=== PATIENT | male | born 1955 | race Two or more races ===

== ENCOUNTER 2016-08-21 21:03 | Emergency (ER) | payer OTHER ==
[~2016-08-21] VITALS: Ht 180.3 cm; Wt 63.5 kg
[2016-08-21 21:23] VITALS: BP 130/80
--- NOTE | 2016-08-21 21:36 | Emergency Room Report ---
History of Present Illness General Chief Complaint: Dyspnea/Respdistress Source: Patient Present Illness HPI This is a 60-year-old male with history of COPD. He still smokes. He is not oxygen dependent. He presents with chief complaint of shortness of breath. Worse with exertion. Has been ongoing issue. He has multiple admissions for the same. He was just at [facility] yesterday. Prescribe antibiotics and steroid including his inhaler. He said is not getting better. Denies any chest pain. No fever or chills. Cough is productive of whitish sputum. No edema. Allergies: Coded Allergies: No Known Allergies (Unverified , 07/10/16) Patient History Past Medical History: see triage record, old chart reviewed, COPD Past Surgical History: other Pertinent Family History: none Social History: Reports: smoking Immunizations: other Reviewed Nursing Documentation: PMH: Agreed, PSxH: Agreed Nursing Documentation-PMH Hx COPD: Yes Hx Gastrointestinal Problems: No - Left testicular, hernia. Review of Systems Eye: Denies: blurred vision, eye pain ENT: Denies: ear pain, nose congestion, throat swelling Respiratory: Reports: cough, shortness of breath Cardiovascular: Denies: chest pain, palpitations Gastrointestinal: Denies: abdominal pain, diarrhea, nausea, vomiting Musculoskeletal: Denies: back pain, joint pain Skin: Denies: rash Neurological: Denies: headache, numbness Endocrine: Denies: increased thirst, increased urine Hematologic/Lymphatic: Denies: easy bruising All Other Systems: negative except mentioned in HPI Physical Exam Vital Signs Date Time Temp Pulse Resp B/P Pulse Ox O2 Delivery O2 Flow Rate FiO2 08/21/16 21:10 98.1 78 20 130/80 100 Simple Mask 10.0 vitals unremarkable. Sp02 EP Interpretation: reviewed, normal General Appearance: well appearing, alert, mild distress Head: normocephalic, atraumatic Eyes: bilateral eye EOMI, bilateral eye PERRL ENT: hearing grossly normal, normal pharynx Neck: full range of motion, supple, no meningismus Respiratory: chest non-tender, decreased breath sounds, rhonchi Cardiovascular #1: regular rate, rhythm, no murmur Gastrointestinal: normal bowel sounds, non tender, no mass, no organomegaly, no bruit, non-distended Musculoskeletal: back normal, gait/station normal, normal range of motion Psychiatric: mood/affect normal Skin: warm/dry Medical Decision Making Diagnostic Impression: Primary Impression: COPD exacerbation Additional Impressions: Acute and chronic respiratory failure ([id number]) Qualified Codes: J96.21 - Acute and chronic respiratory failure with hypoxia Cocaine abuse ER Course Patient presents with COPD exacerbation. Has multiple admission in the past. I suspect that his cocaine use is causing his respiratory distress. His much better now. He is stable for transfer. No evidence of ACS, PE, pneumonia, dissection to name a few. Laboratory Tests Test 08/21/16 21:41 08/21/16 22:15 White Blood Count 11.2 K/UL (4.8-10.8) H Red Blood Count 4.88 M/UL (4.70-6.10) Hemoglobin 14.7 G/DL (14.2-18.0) Hematocrit 46.2 % (42.0-52.0) Mean Corpuscular Volume 95 FL (80-99) Mean Corpuscular Hemoglobin 30.2 PG (27.0-31.0) Mean Corpuscular Hemoglobin Concent 31.9 G/DL (32.0-36.0) L Red Cell Distribution Width 14.6 % (11.6-14.8) Platelet Count 332 K/UL (150-450) Mean Platelet Volume 6.8 FL (6.5-10.1) Neutrophils (%) (Auto) 65.5 % (45.0-75.0) Lymphocytes (%) (Auto) 26.2 % (20.0-45.0) Monocytes (%) (Auto) 5.5 % (1.0-10.0) Eosinophils (%) (Auto) 0.4 % (0.0-3.0) Basophils (%) (Auto) 2.3 % (0.0-2.0) H Sodium Level 140 mEQ/L (135-145) Potassium Level 4.2 mEQ/L (3.4-4.9) Chloride Level 94 mEQ/L (98-107) L Carbon Dioxide Level 35 mEQ/L (20-30) H Anion Gap 11 (5-15) Blood Urea Nitrogen 16 mg/dL (7-23) Creatinine 0.8 mg/dL (0.7-1.2) Estimat Glomerular Filtration Rate > 60 mL/min (>60) Glucose Level 172 mg/dL (74-106) H Calcium Level 8.5 mg/dL (8.6-10.2) L Total Bilirubin < 0.2 mg/dL (0.0-1.2) Aspartate Amino Transf (AST/SGOT) 15 U/L (5-40) Alanine Aminotransferase (ALT/SGPT) 17 U/L (3-41) Alkaline Phosphatase 72 U/L (40-129) Total Creatine Kinase 58 U/L (38-174) Creatine Kinase MB 1.9 ng/mL (< 6.7) Creatine Kinase MB Relative Index 3.2 Troponin I < 0.30 ng/mL (<=0.30) Total Protein 6.0 g/dL (6.6-8.7) L Albumin 3.3 g/dL (3.5-5.2) L Globulin 2.7 g/dL Albumin/Globulin Ratio 1.2 (1.0-2.7) Urine Color Pale yellow Urine Appearance Clear Urine pH 6.5 (4.5-8.0) Urine Specific [place] 1.015 (1.005-1.035) Urine Protein 1+ (NEGATIVE) H Urine Glucose (UA) Negative (NEGATIVE) Urine Ketones Negative (NEGATIVE) Urine Occult Blood 1+ (NEGATIVE) H Urine Nitrite Negative (NEGATIVE) Urine Bilirubin Negative (NEGATIVE) Urine Urobilinogen Normal MG/DL (0.0-1.0) Urine Leukocyte Esterase Negative (NEGATIVE) Urine RBC 0-2 /HPF (0 - 0) H Urine WBC 0-2 /HPF (0 - 0) Urine Squamous Epithelial Cells Occasional /LPF Urine Bacteria None /HPF (NONE) Urine Opiates Screen Positive (NEGATIVE) H Urine Barbiturates Screen Negative (NEGATIVE) Phencyclidine (PCP) Screen Negative (NEGATIVE) Urine Amphetamines Screen Negative (NEGATIVE) Urine Benzodiazepines Screen Negative (NEGATIVE) Urine Cocaine Screen Positive (NEGATIVE) H Urine Marijuana (THC) Screen Negative (NEGATIVE) Lab Results Impression labs unremarkable EKG Diagnostic Results Rate: normal Rhythm: NSR ST Segments: no acute changes Rhythm Strip Diag. Results EP Interpretation: yes Rate: 80 Rhythm: NSR, no PVC's, no ectopy Chest X-Ray Diagnostic Results EP Interpretation: Yes Findings: no consolidation, no effusion, no pneumothorax, no acute cardiopulmonary disease, other - Hyperinflation consistent with COPD Number of Views: 1 Last Vital Signs Date Time Temp Pulse Resp B/P Pulse Ox O2 Delivery O2 Flow Rate FiO2 08/21/16 21:23 82 23 Simple Mask 10.0 08/21/16 21:23 98.1 130/80 100 Status: improved Disposition: XFER SHT-TRM HOSP Condition: Stable BRANDT ADORNO M.D. Aug 21, 2016 21:36
[2016-08-21] MEDS ORDERED: DuoNeb 0.5-3(2.5)mg/3ml neb HHN PRN (21:45)
[2016-08-21] MEDS ORDERED: LORazepam Inj 2mg/ml 1ml IV PRN (21:45)
[2016-08-21] MEDS ORDERED: Ipratropium 0.02% Inh Soln 2.5ml UD HHN ONE (21:45)
[2016-08-21] MEDS ORDERED: Promethazine/Codeine 5ml UD ORAL PRN (21:45)
[2016-08-21] MEDS ORDERED: Ketorolac 30mg Inj IV PRN (21:45)
[2016-08-21] MEDS ORDERED: Solu-MEDROL 125mg Inj IVP ONE (21:45)
[2016-08-21] MEDS ORDERED: Nitroglycerin Subl 0.4mg tab (Bottle Of 25) SL PRN (21:45)
[2016-08-21] MEDS ORDERED: Albuterol ud Inhalation HHN ONE (21:45)
[2016-08-21] MEDS ORDERED: Morphine Sulfate 2mg/ml Inj IVP PRN (21:45)
[2016-08-21 21:58] LABS: BASOPHILS % (AUTO) 2.3 % (0.0-2.0); EOSINOPHILS % (AUTO) 0.4 % (0.0-3.0); LYMPHOCYTES % (AUTO) 26.2 % (20.0-45.0); MEAN CORPUSCULAR HEMOGLOBIN 30.2 PG (27.0-31.0); MEAN CORPUSCULAR HGB CONC 31.9 G/DL (32.0-36.0); MEAN CORPUSCULAR VOLUME 95 FL (80-99); MEAN PLATELET VOLUME 6.8 FL (6.5-10.1); MONOCYTES % (AUTO) 5.5 % (1.0-10.0); NEUTROPHILS % (AUTO) 65.5 % (45.0-75.0); PLATELET COUNT 332 K/UL (150-450); RED BLOOD COUNT 4.88 M/UL (4.70-6.10); RED CELL DISTRIBUTION WIDTH 14.6 % (11.6-14.8); WHITE BLOOD COUNT 11.2 K/UL (4.8-10.8)
[2016-08-21] MEDS ORDERED: ACETAMINOPHEN-1 EAC1 ORAL (21:58)
[2016-08-21] MEDS ORDERED: VENTOLIN HFA18 GM INH (21:58)
[2016-08-21] MEDS ORDERED: Piperacillin/Tazobactam 2.25 GM in D5W 55 ML IV SCH (22:00)
[2016-08-21 22:14] LABS: TROPONIN I < 0.30 ng/mL (<=0.30)
[2016-08-21 22:17] LABS: ALANINE AMINOTRANSFERASE 17 U/L (3-41); ALBUMIN/GLOBULIN RATIO 1.2 (1.0-2.7); ANION GAP 11 (5-15); ASPARTATE AMINO TRANSFERASE 15 U/L (5-40); CALCIUM 8.5 mg/dL (8.6-10.2); CARBON DIOXIDE 35 mEQ/L (20-30); CHLORIDE 94 mEQ/L (98-107); CREATININE 0.8 mg/dL (0.7-1.2); GLOMERULAR FILTRATION RATE > 60 mL/min (>60); HEMOLYSIS 7; POTASSIUM 4.2 mEQ/L (3.4-4.9); SODIUM 140 mEQ/L (135-145)
[2016-08-21 22:27] LABS: CKMB 1.9 ng/mL (< 6.7)
[2016-08-21 22:45] LABS: APPEARANCE,URINE CLEAR; KETONES,URINE NEGATIVE (NEGATIVE); LEUKOCYTE ESTERASE ,URINE NEGATIVE (NEGATIVE); NITRITE,URINE NEGATIVE (NEGATIVE); PH,URINE 6.5 (4.5-8.0); PROTEIN,URINE 1+ (NEGATIVE); UROBILINOGEN,URINE NORMAL MG/DL (0.0-1.0)
[2016-08-21 22:55] LABS: RBC,URINE 0-2 /HPF (0 - 0); WBC,URINE 0-2 /HPF (0 - 0)
[2016-08-21 22:56] LABS: SQUAMOUS EPITHELIAL CELL,UR OCCASIONAL /LPF (NONE/OCC)
[2016-08-21 23:05] VITALS: BP 114/76
[2016-08-21 23:21] VITALS: BP 114/76
[2016-08-22] MEDS ORDERED: Solu-MEDROL 125mg Inj IV SCH
[2016-08-22] MEDS ORDERED: NovoLOG Insulin Flexpen SUBQ SCH (06:30)
[2016-08-22] MEDS ORDERED: Heparin 5000 units/ml inj SUBQ SCH (09:00)
[2016-08-22] MEDS ORDERED: Theophylline ER 100mg ORAL SCH (09:00)
--- NOTE | 2016-08-22 11:31 | Diagnostic Imaging Report ---
Indication: Dyspnea Comparison: 07/10/16 A single view chest radiograph was obtained. Findings: Lungs are hyperexpanded. Bones are osteopenic. Heart size is normal. Impression: COPD
--- NOTE | 2016-09-20 13:30 | Cardiology Report ---
APPROVED REPORT EKG Measurement Heart [id number] Normal sinus rhythm Rightward axis Nonspecific ST and T wave abnormality Abnormal ECG
== END 2016-08-21 23:22 | disposition short-term general hospital (02) ==
LOC: EDBD 21:03 → EMR 21:50
DX: J44.1 Chronic obstructive pulmonary disease with (acute) exacerbation (principal); J96.21 Acute and chronic respiratory failure with hypoxia; F14.10 Cocaine abuse, uncomplicated; F17.200 Nicotine dependence, unspecified, uncomplicated
CPT/HCPCS: 36415; 71010; 80053; 80300; 81003; 82550; 82553; 84484; 85025; 87081; 93005; 94640; 94664; 96374; 96375; 99284; J2930; J7040

== ENCOUNTER 2017-01-29 18:13 | Emergency (ER) | payer OTHER ==
[~2017-01-29] VITALS: Ht 172.7 cm; Wt 54.4 kg
[~2017-01-29 18:13] MED LIST: ACETAMINOPHEN-1 EAC1 ORAL; VENTOLIN HFA18 GM INH
[2017-01-29 19:06] LABS: BASOPHILS % (AUTO) 0.7 % (0.0-2.0); LYMPHOCYTES % (AUTO) 19.6 % (20.0-45.0); MEAN CORPUSCULAR HEMOGLOBIN 29.6 PG (27.0-31.0); MEAN CORPUSCULAR HGB CONC 31.7 G/DL (32.0-36.0); MEAN CORPUSCULAR VOLUME 93 FL (80-99); MEAN PLATELET VOLUME 8.3 FL (6.5-10.1); MONOCYTES % (AUTO) 5.2 % (1.0-10.0); NEUTROPHILS % (AUTO) 72.6 % (45.0-75.0); PLATELET COUNT 227 K/UL (150-450); RED BLOOD COUNT 5.44 M/UL (4.70-6.10); RED CELL DISTRIBUTION WIDTH 14.4 % (11.6-14.8); WHITE BLOOD COUNT 8.9 K/UL (4.8-10.8)
[2017-01-29 19:21] LABS: ALANINE AMINOTRANSFERASE 14 U/L (3-41); ALBUMIN/GLOBULIN RATIO 1.3 (1.0-2.7); ANION GAP 15 (5-15); ASPARTATE AMINO TRANSFERASE 20 U/L (5-40); CALCIUM 9.6 mg/dL (8.6-10.2); CARBON DIOXIDE 27 mEQ/L (20-30); CHLORIDE 102 mEQ/L (98-107); CREATININE 1.2 mg/dL (0.7-1.2); GLOMERULAR FILTRATION RATE > 60 mL/min (>60); HEMOLYSIS 59; POTASSIUM 4.9 mEQ/L (3.4-4.9); SODIUM 144 mEQ/L (135-145); TOTAL PROTEIN 7.7 g/dL (6.6-8.7)
[2017-01-29] MEDS ORDERED: Ipratropium 0.02% Inh Soln 2.5ml UD HHN ONE (19:30)
[2017-01-29] MEDS ORDERED: Solu-MEDROL 125mg Inj IVP ONE (19:30)
[2017-01-29] MEDS ORDERED: Albuterol ud Inhalation HHN ONE (19:30)
[2017-01-29 19:31] LABS: CKMB 2.2 ng/mL (< 6.7); TROPONIN I < 0.30 ng/mL (<=0.30)
[2017-01-29 20:43] VITALS: BP 124/76
[2017-01-29] MEDS ORDERED: Morphine Sulfate 4mg/ml Inj IVP ONE (22:30)
[2017-01-29 23:20] VITALS: BP 122/78
--- NOTE | 2017-01-29 23:22 | Emergency Room Report ---
History of Present Illness General Chief Complaint: Dyspnea/Respdistress Source: Patient Present Illness HPI 61-year-old male presents ED complaining of shortness of breath. Patient has history of COPD. States he's been wheezing. Feels weak. Denies any fevers or chills. Denies cough. Denies chest pain. No other aggravating relieving factors. Denies any other associated symptom Allergies: Coded Allergies: No Known Allergies (Unverified , 07/10/16) Patient History Past Medical History: COPD Past Surgical History: none Pertinent Family History: none Social History: Denies: alcohol use, drug use, smoking Immunizations: UTD Reviewed Nursing Documentation: PMH: Agreed, PSxH: Agreed Nursing Documentation-PMH Hx COPD: Yes Hx Gastrointestinal Problems: No - Left testicular, hernia. Review of Systems All Other Systems: negative except mentioned in HPI Physical Exam Vital Signs Date Time Temp Pulse Resp B/P Pulse Ox O2 Delivery O2 Flow Rate FiO2 01/29/17 18:09 98.8 88 14 136/71 94 Room Air Sp02 EP Interpretation: reviewed, normal General Appearance: no apparent distress, alert, GCS 15, non-toxic Head: normocephalic, atraumatic Eyes: bilateral eye PERRL, bilateral eye normal inspection ENT: hearing grossly normal, normal pharynx, no angioedema, normal voice Neck: full range of motion, supple/symm/no masses Respiratory: decreased breath sounds, speaking full sentences, wheezing Cardiovascular #1: regular rate, rhythm, no edema Cardiovascular #2: 2+ carotid (R), 2+ carotid (L), 2+ radial (R), 2+ radial (L) , 2+ dorsalis pedis (R), 2+ dorsalis pedis (L) Gastrointestinal: normal bowel sounds, non tender, soft, non-distended, no guarding, no rebound Rectal: deferred Genitourinary: normal inspection, no CVA tenderness Musculoskeletal: back normal, gait/station normal, normal range of motion, non- tender Neurologic: alert, oriented x3, responsive, motor strength/tone normal, sensory intact, speech normal Psychiatric: judgement/insight normal, memory normal, mood/affect normal, no suicidal/homicidal ideation Reflexes: 3+ bicep (R), 3+ bicep (L), 3+ tricep (R), 3+ tricep (L), 3+ knee (R) , 3+ knee (L) Skin: normal color, no rash, warm/dry, well hydrated Lymphatic: no adenopathy Medical Decision Making Diagnostic Impression: Primary Impression: COPD exacerbation ER Course Hospital Course 61-year-old M presenting to ED with SOB. h/o COPD Differential diagnoses include: Pneumonia, CHF exacerbation, pneumothorax, fluid overload Clinical course Patient placed on stretcher. 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 After initial history and physical, I ordered nebulizer treatments. I ordered labs, IV fluids, EKG, chest x-ray, blood cultures, UA. Labs - no leukocytosis noted, hemoglobin/hematocrit stable, electrolytes okay, lactate okay, troponins negative CXR - hyperinflated lungs. no infiltrates EKG - NSR, no acute changes, interpreted by me Patient states he does not feel better and wishes to be admitted. abx given Because of insurance patient will be transferred I feel this is a highly complex case requiring extensive working including EKG/ Rhythm strip, Xray/CT/US, Blood/urine lab work, repeat exams while in ED, and administration of strong opiates/narcotics for pain control, admission to hospital or close patient follow up. Diagnosis - COPD exacerbation Transferred in serious condition Labs Test 01/29/17 18:50 White Blood Count 8.9 K/UL (4.8-10.8) Red Blood Count 5.44 M/UL (4.70-6.10) Hemoglobin 16.1 G/DL (14.2-18.0) Hematocrit 50.9 % (42.0-52.0) Mean Corpuscular Volume 93 FL (80-99) Mean Corpuscular Hemoglobin 29.6 PG (27.0-31.0) Mean Corpuscular Hemoglobin Concent 31.7 G/DL (32.0-36.0) Red Cell Distribution Width 14.4 % (11.6-14.8) Platelet Count 227 K/UL (150-450) Mean Platelet Volume 8.3 FL (6.5-10.1) Neutrophils (%) (Auto) 72.6 % (45.0-75.0) Lymphocytes (%) (Auto) 19.6 % (20.0-45.0) Monocytes (%) (Auto) 5.2 % (1.0-10.0) Eosinophils (%) (Auto) 2.0 % (0.0-3.0) Basophils (%) (Auto) 0.7 % (0.0-2.0) Sodium Level 144 mEQ/L (135-145) Potassium Level 4.9 mEQ/L (3.4-4.9) Chloride Level 102 mEQ/L (98-107) Carbon Dioxide Level 27 mEQ/L (20-30) Anion Gap 15 (5-15) Blood Urea Nitrogen 16 mg/dL (7-23) Creatinine 1.2 mg/dL (0.7-1.2) Estimat Glomerular Filtration Rate > 60 mL/min (>60) Glucose Level 90 mg/dL (74-106) Calcium Level 9.6 mg/dL (8.6-10.2) Total Bilirubin 0.3 mg/dL (0.0-1.2) Aspartate Amino Transf (AST/SGOT) 20 U/L (5-40) Alanine Aminotransferase (ALT/SGPT) 14 U/L (3-41) Alkaline Phosphatase 102 U/L (40-129) Total Creatine Kinase 127 U/L (38-174) Creatine Kinase MB 2.2 ng/mL (< 6.7) Creatine Kinase MB Relative Index 1.7 Troponin I < 0.30 ng/mL (<=0.30) Total Protein 7.7 g/dL (6.6-8.7) Albumin 4.4 g/dL (3.5-5.2) Globulin 3.3 g/dL Albumin/Globulin Ratio 1.3 (1.0-2.7) EKG Diagnostic Results Rate: normal Rhythm: NSR ST Segments: no acute changes ASA given to the pt in ED: No Rhythm Strip Diag. Results EP Interpretation: yes Rhythm: NSR, no PVC's, no ectopy Chest X-Ray Diagnostic Results Chest X-Ray Ordered: Yes # of Views/Limited/Complete: 1 View EP Interpretation: Yes Interpretation: no consolidation, no effusion, no pneumothorax, other - hyperinflated lungs Indication: Shortness of Breath Impression: Other - COPD Interpreting ER Provider: Ike Teran mD Last Vital Signs Date Time Temp Pulse Resp B/P Pulse Ox O2 Delivery O2 Flow Rate FiO2 01/29/17 20:43 98.0 87 12 124/76 90 Room Air Status: improved Disposition: XFER SHT-TRM HOSP Condition: Serious Referrals: [facility]ERR[facility] (PCP) IKE TERAN M.D. Jan 29, 2017 23:22
--- NOTE | 2017-01-30 14:37 | Diagnostic Imaging Report ---
Indications: Shortness of breath Technique: Portable AP chest Findings: Comparison: 08/21/16 Lung volumes have increased bilaterally with increased flattening of the diaphragm. Scattered increased interstitial markings again noted. One ovoid and one crescentic nodular density are now noted over the right upper lobe. Heart remains enlarged. Central pulmonary arteries remain enlarged. Peripheral pulmonary vasculature remains within normal limits. No pleural abnormality demonstrated. IMPRESSION: Findings compatible with COPD. Increased lung volumes may represent acute air-trapping. Poorly clinically. No other evidence of acute disease, unchanged Nodular densities overlying right upper lobe likely represents external artifact
--- NOTE | 2017-01-31 15:08 | Cardiology Report ---
APPROVED REPORT EKG Measurement Heart [id number] Normal sinus rhythm Normal ECG
== END 2017-01-29 23:14 | disposition short-term general hospital (02) ==
LOC: EDBD 18:13 → EMR 20:45
DX: J44.1 Chronic obstructive pulmonary disease with (acute) exacerbation (principal)
CPT/HCPCS: 36415; 71010; 80053; 82550; 82553; 84484; 85025; 93005; 94640; 94664; 96374; 96375; 99285; J1956; J2270; J2930

== ENCOUNTER 2017-04-26 19:33 | Emergency (ER) | payer OTHER ==
[~2017-04-26] VITALS: Ht 182.9 cm; Wt 54.4 kg
[2017-04-26] MEDS ORDERED: Azithromycin 500 MG in NS 275 ML IV ONE (19:45)
[2017-04-26] MEDS ORDERED: Solu-MEDROL 125mg Inj IVP ONE (19:45)
--- NOTE | 2017-04-26 19:45 | Emergency Room Report ---
History of Present Illness General Source: Medical Record, EMS Present Illness HPI 61YOM BIBEMS for 2-3 days progressive SOB, chest tightness Denies fever but "always feel cold". Was admitted to outside hospital 2 weeks ago also for "acute COPD" Denies history of CHF + smoker Denies abd pain, nausea/vomiting, urinary complaints, headache to name a few Allergies: Coded Allergies: No Known Allergies (Unverified , 07/10/16) Patient History Past Medical History: COPD Past Surgical History: none Pertinent Family History: none Social History: Reports: smoking Immunizations: UTD Reviewed Nursing Documentation: PMH: Agreed, PSxH: Agreed Nursing Documentation-PMH Hx COPD: Yes Hx Gastrointestinal Problems: No - Left testicular, hernia. Review of Systems All Other Systems: negative except mentioned in HPI Physical Exam Sp02 EP Interpretation: reviewed, abnormal General Appearance: normal inspection, well appearing, alert, GCS 15, non-toxic , mild distress Head: normocephalic, atraumatic Eyes: bilateral eye PERRL, bilateral eye EOMI ENT: normal ENT inspection, hearing grossly normal, normal voice Neck: normal inspection, full range of motion, supple, no bony tend Respiratory: normal inspection, accessory muscle use, rhonchi, wheezing Cardiovascular #1: regular rate, rhythm, no edema Gastrointestinal: normal inspection, normal bowel sounds, non tender, soft, no guarding, no hernia Genitourinary: no CVA tenderness Musculoskeletal: normal inspection, back normal, normal range of motion, Natalie' s Sign negative Neurologic: normal inspection, alert, oriented x3, 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 Afebrile No leuks or metabolic abnormalities No PNA on CXR Improved with nebs, BIPAP Blood Cx pending Empiric Azithro given for COPD exacerbation Tele admit Dr Cyr 908pm Stable for transfer EKG Diagnostic Results Rhythm: NSR ST Segments: no acute changes Other Impression Qwaves in V1,2 ASA given to the pt in ED: No Rhythm Strip Diag. Results EP Interpretation: yes Rhythm: NSR, no PVC's, no ectopy Chest X-Ray Diagnostic Results Chest X-Ray Diagnostic Results : Chest X-Ray Ordered: Yes # of Views/Limited/Complete: 1 View Indication: Shortness of Breath EP Interpretation: Yes Interpretation: no consolidation, no effusion, no pneumothorax, no acute cardiopulmonary disease, other - hyperinflated Impression: No acute disease Electronically Signed by: Dr David Kaur MD Status: improved Disposition: ADMITTED INPATIENT Condition: Serious DAVID KAUR M.D. Apr 26, 2017 19:45
[2017-04-26] MEDS: Albuterol ud Inhalation HHN SCH ×2 (19:58→20:01)
[2017-04-26] MEDS: Ipratropium 0.02% Inh Soln 2.5ml UD HHN SCH ×2 (19:58→20:01)
[2017-04-26] MEDS ORDERED: Azithromycin 500mg Inj IV ONE (20:08)
[2017-04-26 20:28] LABS: BASOPHILS % (AUTO) 1.5 % (0.0-2.0); EOSINOPHILS % (AUTO) 1.6 % (0.0-3.0); LYMPHOCYTES % (AUTO) 33.1 % (20.0-45.0); MEAN CORPUSCULAR HEMOGLOBIN 30.5 PG (27.0-31.0); MEAN CORPUSCULAR HGB CONC 31.6 G/DL (32.0-36.0); MEAN CORPUSCULAR VOLUME 96 FL (80-99); MEAN PLATELET VOLUME 7.6 FL (6.5-10.1); MONOCYTES % (AUTO) 8.5 % (1.0-10.0); NEUTROPHILS % (AUTO) 55.4 % (45.0-75.0); PLATELET COUNT 225 K/UL (150-450); RED BLOOD COUNT 4.75 M/UL (4.70-6.10); RED CELL DISTRIBUTION WIDTH 14.8 % (11.6-14.8); WHITE BLOOD COUNT 9.5 K/UL (4.8-10.8)
[2017-04-26 20:33] LABS: TROPONIN I < 0.30 ng/mL (<=0.30)
[2017-04-26 20:36] LABS: ALANINE AMINOTRANSFERASE 17 U/L (3-41); ALBUMIN/GLOBULIN RATIO 1.6 (1.0-2.7); ANION GAP 9 (5-15); ASPARTATE AMINO TRANSFERASE 18 U/L (5-40); CALCIUM 9.6 mg/dL (8.6-10.2); CARBON DIOXIDE 35 mEQ/L (20-30); CHLORIDE 101 mEQ/L (98-107); GLOMERULAR FILTRATION RATE > 60 mL/min (>60); HEMOLYSIS 2; POTASSIUM 4.4 mEQ/L (3.4-4.9); SODIUM 145 mEQ/L (135-145); TOTAL PROTEIN 6.9 g/dL (6.6-8.7)
[2017-04-26 20:47] LABS: CKMB 2.6 ng/mL (< 6.7)
[2017-04-26 21:41] VITALS: BP 104/67
[2017-04-26 22:45] VITALS: BP 111/79
[2017-04-26 22:46] VITALS: BP 111/79
--- NOTE | 2017-04-27 10:07 | Diagnostic Imaging Report ---
Indication: SOB Technique: One view of the chest Comparison: 01/29/2017 Findings: Lungs are hyperinflated. Lungs and pleural spaces are clear. Heart size is normal. Aorta is tortuous. Upper mediastinum is unremarkable. No significant interim change Impression: No acute process
== END 2017-04-26 22:45 | disposition short-term general hospital (02) ==
LOC: EDBD 19:33 → EDUNIT# 19:33 → EMR 20:03
DX: J44.1 Chronic obstructive pulmonary disease with (acute) exacerbation (principal); R06.02 Shortness of breath; R07.89 Other chest pain; F17.200 Nicotine dependence, unspecified, uncomplicated
CPT/HCPCS: 36415; 71010; 80053; 80300; 82550; 82553; 84484; 85025; 87040; 93005; 94640; 94664; 99285; J0456; J2930; J7050

== ENCOUNTER 2017-08-30 21:49 | Emergency (ER) | payer OTHER ==
[~2017-08-30] VITALS: Ht 182.9 cm; Wt 52.6 kg
[2017-08-30] MEDS ORDERED: Albuterol ud Inhalation HHN ONE (22:00)
[2017-08-30] MEDS ORDERED: Ipratropium 0.02% Inh Soln 2.5ml UD HHN ONE (22:00)
[2017-08-30] MEDS ORDERED: Solu-MEDROL 125mg Inj IVP ONE (22:00)
[2017-08-30 22:04] VITALS: BP 123/92
[2017-08-30] MEDS ORDERED: Morphine Sulfate 2mg/ml Inj IVP PRN (22:15)
[2017-08-30] MEDS ORDERED: Nitroglycerin Subl 0.4mg tab SL PRN (22:15)
[2017-08-30] MEDS ORDERED: Albuterol/Ipratropium 3ml neb HHN PRN (22:15)
[2017-08-30] MEDS ORDERED: LORazepam Inj 2mg/ml 1ml IV PRN (22:15)
[2017-08-30] MEDS ORDERED: Ketorolac 30mg Inj IV PRN (22:15)
[2017-08-30] MEDS ORDERED: Promethazine/Codeine 5ml UD ORAL PRN (22:15)
--- NOTE | 2017-08-30 22:18 | Emergency Room Report ---
History of Present Illness General Chief Complaint: Dyspnea/Respdistress Source: Patient, Medical Record, EMS Present Illness HPI Is a 61-year-old male who was a heavy smoker. Also uses cocaine in the past. Said he quit month and a half ago. He presents with chief complaint of shortness of breath. He just left [facility] yesterday. He was therefore to have weeks. He refused penitentiary placement. He was home and said he felt weak. Been coughing more. Has distant exertion. Per EMS room air oxygenation was 88%. On 2 L is 95%. No chest pain. No nausea no vomiting. Cough is productive of phlegm. Similar symptoms in the past Allergies: Coded Allergies: No Known Allergies (Unverified , 07/10/16) Patient History Past Medical History: see triage record, old chart reviewed, COPD Past Surgical History: other Pertinent Family History: none Social History: Reports: smoking - quit last month, drug use - Quit cocaine last month Immunizations: other Reviewed Nursing Documentation: PMH: Agreed, PSxH: Agreed Nursing Documentation-PMH Hx Asthma: Yes Hx COPD: Yes - emphysema Hx Gastrointestinal Problems: No - Left testicular, hernia. Review of Systems Eye: Denies: eye pain, blurred vision ENT: Denies: ear pain, nose congestion, throat swelling Respiratory: Denies: cough, shortness of breath Cardiovascular: Denies: chest pain, palpitations Gastrointestinal: Denies: abdominal pain, diarrhea, nausea, vomiting Musculoskeletal: Denies: back pain, joint pain Skin: Denies: rash Neurological: Denies: headache, numbness Endocrine: Denies: increased thirst, increased urine Hematologic/Lymphatic: Denies: easy bruising All Other Systems: negative except mentioned in HPI Physical Exam Vital Signs Date Time Temp Pulse Resp B/P (MAP) Pulse Ox O2 Delivery O2 Flow Rate FiO2 08/30/17 21:53 98.1 108 22 143/118 99 Room Air 08/30/17 22:04 2.0 vitals with high blood pressure Sp02 EP Interpretation: reviewed, normal General Appearance: well appearing, alert, mild distress, thin Head: normocephalic, atraumatic Eyes: bilateral eye PERRL, bilateral eye EOMI ENT: hearing grossly normal, normal pharynx Neck: full range of motion, supple, no meningismus Respiratory: chest non-tender, respiratory distress, decreased breath sounds, rhonchi Cardiovascular #1: regular rate, rhythm, no murmur Gastrointestinal: normal bowel sounds, non tender, no mass, no organomegaly, no bruit, non-distended Musculoskeletal: back normal, gait/station normal, normal range of motion Psychiatric: mood/affect normal Skin: warm/dry Medical Decision Making Diagnostic Impression: Primary Impression: COPD exacerbation Additional Impression: Cocaine abuse ER Course Patient presents with COPD exacerbation. X-ray unremarkable. No change. No evidence of bacterial infection. He refuse a urine sample. Patient is stable for transfer to [facility]. Laboratory Tests Test 08/30/17 20:30 White Blood Count 17.8 K/UL (4.8-10.8) H Red Blood Count 5.49 M/UL (4.70-6.10) Hemoglobin 15.1 G/DL (14.2-18.0) Hematocrit 50.2 % (42.0-52.0) Mean Corpuscular Volume 91 FL (80-99) Mean Corpuscular Hemoglobin 27.5 PG (27.0-31.0) Mean Corpuscular Hemoglobin Concent 30.1 G/DL (32.0-36.0) L Red Cell Distribution Width 15.8 % (11.6-14.8) H Platelet Count 399 K/UL (150-450) Mean Platelet Volume 6.5 FL (6.5-10.1) Neutrophils (%) (Auto) 67.0 % (45.0-75.0) Lymphocytes (%) (Auto) 24.9 % (20.0-45.0) Monocytes (%) (Auto) 7.3 % (1.0-10.0) Eosinophils (%) (Auto) 0.2 % (0.0-3.0) Basophils (%) (Auto) 0.7 % (0.0-2.0) Sodium Level 139 MMOL/L (136-145) Potassium Level 5.0 MMOL/L (3.5-5.1) Chloride Level 101 MMOL/L (98-107) Carbon Dioxide Level 31 MMOL/L (21-32) Anion Gap 7 mmol/L (5-15) Blood Urea Nitrogen 10 mg/dL (7-18) Creatinine 0.7 MG/DL (0.55-1.30) Estimat Glomerular Filtration Rate > 60 mL/min (>60) Glucose Level 98 MG/DL (74-106) Calcium Level 10.4 MG/DL (8.5-10.1) H Total Bilirubin 0.3 MG/DL (0.2-1.0) Aspartate Amino Transf (AST/SGOT) 22 U/L (15-37) Alanine Aminotransferase (ALT/SGPT) 22 U/L (12-78) Alkaline Phosphatase 112 U/L (46-116) Total Creatine Kinase 38 U/L (26-308) Creatine Kinase MB 1.8 NG/ML (0.0-3.6) Creatine Kinase MB Relative Index 4.7 Troponin I 0.000 ng/mL (0.000-0.056) Pro-B-Type Natriuretic Peptide 22 pg/mL (0-125) Total Protein 8.3 G/DL (6.4-8.2) H Albumin 3.8 G/DL (3.4-5.0) Globulin 4.5 g/dL Albumin/Globulin Ratio 0.8 (1.0-2.7) L Lab Results Impression lab with leukocytosis EKG Diagnostic Results Rate: normal Rhythm: NSR ST Segments: no acute changes Rhythm Strip Diag. Results Rhythm Strip Time: 00:05 EP Interpretation: yes Rate: 94 Rhythm: NSR Chest X-Ray Diagnostic Results Chest X-Ray Diagnostic Results : Chest X-Ray Ordered: Yes # of Views/Limited/Complete: 1 View Indication: Shortness of Breath EP Interpretation: Yes Interpretation: no consolidation, no effusion, no pneumothorax, no acute cardiopulmonary disease Impression: No acute disease - COPD Electronically Signed by: Arash Hankins MD Last Vital Signs Date Time Temp Pulse Resp B/P (MAP) Pulse Ox O2 Delivery O2 Flow Rate FiO2 08/30/17 22:04 98.1 105 28 123/92 100 Nasal Cannula 2.0 Status: improved Disposition: XFER SHT-TRM HOSP Condition: Stable Referrals: [facility]ERR[facility] (PCP) ARASH HANKINS M.D. Aug 30, 2017 22:18
[2017-08-30 22:50] LABS: BASOPHILS % (AUTO) 0.7 % (0.0-2.0); EOSINOPHILS % (AUTO) 0.2 % (0.0-3.0); HEMATOCRIT 50.2 % (42.0-52.0); HEMOGLOBIN 15.1 G/DL (14.2-18.0); LYMPHOCYTES % (AUTO) 24.9 % (20.0-45.0); MEAN CORPUSCULAR VOLUME 91 FL (80-99); MONOCYTES % (AUTO) 7.3 % (1.0-10.0); PLATELET COUNT 399 K/UL (150-450); RED BLOOD COUNT 5.49 M/UL (4.70-6.10); RED CELL DISTRIBUTION WIDTH 15.8 % (11.6-14.8); WHITE BLOOD COUNT 17.8 K/UL (4.8-10.8)
[2017-08-30 23:06] LABS: ANION GAP 7 mmol/L (5-15); BLOOD UREA NITROGEN 10 mg/dL (7-18); CALCIUM 10.4 MG/DL (8.5-10.1); CARBON DIOXIDE 31 MMOL/L (21-32); CHLORIDE 101 MMOL/L (98-107); CREATININE 0.7 MG/DL (0.55-1.30); SODIUM 139 MMOL/L (136-145)
[2017-08-30 23:10] VITALS: BP 130/89
[2017-08-30 23:17] LABS: ALANINE AMINOTRANSFERASE 22 U/L (12-78); ALBUMIN 3.8 G/DL (3.4-5.0); ALBUMIN/GLOBULIN RATIO 0.8 (1.0-2.7); ALKALINE PHOSPHATASE 112 U/L (46-116); ASPARTATE AMINO TRANSFERASE 22 U/L (15-37); BILIRUBIN,TOTAL 0.3 MG/DL (0.2-1.0); CKMB 1.8 NG/ML (0.0-3.6); CREATINE KINASE 38 U/L (26-308)
[2017-08-31] MEDS ORDERED: Solu-MEDROL 125mg Inj IV SCH
[2017-08-31 00:05] VITALS: BP 111/70
[2017-08-31 00:15] VITALS: BP 111/70
[2017-08-31] MEDS ORDERED: Piperacillin/Tazobactam 2.25 GM in D5W 55 ML IV SCH (06:00)
[2017-08-31] MEDS ORDERED: Theophylline ER 100mg ORAL SCH (09:00)
[2017-08-31] MEDS ORDERED: Heparin 5000 units/ml inj SUBQ SCH (09:00)
--- NOTE | 2017-08-31 09:05 | Diagnostic Imaging Report ---
Indication: Shortness of breath Technique: One view of the chest Comparison: 04/26/2017 Findings: Lungs are hyperinflated, consistent with COPD. Reticular opacities, likely scarring, are seen in the left lung base. No definite acute infiltrates, effusions, or congestion. Normal heart size Impression: Hyperinflation, consistent with COPD. No acute abnormality
--- NOTE | 2017-09-10 13:58 | Cardiology Report ---
APPROVED REPORT EKG Measurement Heart [id number] [place] [id number] Sinus tachycardia Biatrial enlargement Rightward axis Pulmonary disease pattern Septal infarct, age undetermined Abnormal ECG
== END 2017-08-31 00:15 | disposition short-term general hospital (02) ==
LOC: EDBD 21:49 → EMR 21:59
DX: J44.1 Chronic obstructive pulmonary disease with (acute) exacerbation (principal); F14.10 Cocaine abuse, uncomplicated; J44.9 Chronic obstructive pulmonary disease, unspecified; F17.200 Nicotine dependence, unspecified, uncomplicated
CPT/HCPCS: 36415; 71045; 80053; 82550; 82553; 83880; 84484; 85025; 93005; 94640; 94664; 96365; 96372; 96375; 99285; J2930

== ENCOUNTER 2017-09-22 18:26 | Emergency (ER) | payer OTHER ==
[~2017-09-22] VITALS: Ht 177.8 cm; Wt 54.4 kg
[2017-09-22 18:39] VITALS: BP 118/77
[2017-09-22] MEDS ORDERED: Ipratropium 0.02% Inh Soln 2.5ml UD HHN ONE (18:45)
[2017-09-22] MEDS ORDERED: Solu-MEDROL 125mg Inj IVP ONE (18:45)
[2017-09-22] MEDS ORDERED: VITAMIN D400 INTLU ORAL (18:51)
[2017-09-22] MEDS ORDERED: MONTELUKAST SOD10 MG ORAL (18:51)
--- NOTE | 2017-09-22 18:54 | Emergency Room Report ---
History of Present Illness General Chief Complaint: Dyspnea/Respdistress Source: Patient, EMS Present Illness HPI 61-year-old male, history of COPD on intermittent home O2, presenting with shortness of breath, also intermittent bilateral leg pain. Patient states that he has had shortness of breath, has inhaler at home. Has been using it but will not quantify the amount. No fever no chills. Also states that since the beginning of the year he has bilateral leg pain. Sometimes on the left and sometimes on the right. Today is behind the left thigh. No urinary retention, no weakness of legs, no trauma. No other complaints Allergies: Coded Allergies: GABAPENTIN (Unverified Allergy, Intermediate, 09/22/17) Patient History Past Medical History: see triage record Past Surgical History: none Pertinent Family History: none Reviewed Nursing Documentation: PMH: Agreed, PSxH: Agreed Nursing Documentation-PMH Hx Hypertension: Yes Hx Asthma: Yes Hx COPD: Yes Hx Diabetes: Yes Hx Gastrointestinal Problems: No - Left testicular, hernia. Review of Systems All Other Systems: negative except mentioned in HPI Physical Exam Vital Signs Date Time Temp Pulse Resp B/P (MAP) Pulse Ox O2 Delivery O2 Flow Rate FiO2 09/22/17 18:16 98.2 93 18 128/88 98 Nasal Cannula 1.0 98.2 Sp02 EP Interpretation: abnormal General Appearance: alert, GCS 15, non-toxic, mild distress Head: normocephalic, atraumatic Eyes: bilateral eye normal inspection, bilateral eye PERRL, bilateral eye EOMI ENT: normal ENT inspection, normal pharynx, normal voice, moist mucus membranes Neck: normal inspection, full range of motion, supple Respiratory: respiratory distress, speaking full sentences, wheezing, expiration Cardiovascular #1: normal inspection, regular rate, rhythm, no edema, normal capillary refill Cardiovascular #2: 2+ radial (R), 2+ radial (L) Gastrointestinal: normal inspection, non tender, soft, non-distended, no guarding Genitourinary: no CVA tenderness Musculoskeletal: other - mild tenderness behind L thigh. no ecchymosis. no gross bony deformities. FROM all ext. no back tenderness Neurologic: normal inspection, alert, oriented x3, responsive, motor strength/ tone normal, sensory intact, normal gait, speech normal Psychiatric: normal inspection, judgement/insight normal, memory normal Skin: normal inspection, normal color, no rash, warm/dry, well hydrated, normal turgor Medical Decision Making Diagnostic Impression: Primary Impression: COPD exacerbation ER Course 61-year-old male presenting with shortness of breath, intermittent bilateral leg pain DDX: COPD exacerbation, ACS, pneumonia, viral illness Plan: IV access, secured entrance monitor, O2 nasal cannula, EKG, CXR obtain basic labs including blood gas, troponin, Duonebs, steroids, consider mag ER Course: Patient's respiratory status has been closely monitored in the ED. Patient has been treated with combivent x 3, steroids, antibiotics. pt given nebs, pt refusing ABG at this time. however he is awake and alert CXR reveals no acute infiltrate no abnormalities of leg Disposition: Patient will be Transferred to outside hospital because of insurance purposes. I endorsed the patient to Dr. Galvan who has accepted pt Please note that this Emergency Department Report was dictated using [employer] setter technology software, occasionally this can lead to erroneous entry secondary to interpretation by the dictation equipment. EKG Diagnostic Results EP Interpretation: Yes Rate: normal Rhythm: NSR ST Segments: No acute changes ASA given to patient: no Rhythm Strip EP Interpretation: Yes Rate: 70 Rhythm: NSR, no PVCs, no ectopy Chest X-ray* CXR: Ordered: Yes 1 view Indication shortness of breath EP interpretation: Yes Interpretation: No consolidation, no effusion, no PTX, no acute cardiopulmonary disease Impression: No acute disease Electronically signed by Juan Garza MD Laboratory Tests Test 09/22/17 18:50 White Blood Count 10.6 K/UL (4.8-10.8) Red Blood Count 4.36 M/UL (4.70-6.10) L Hemoglobin 13.1 G/DL (14.2-18.0) L Hematocrit 40.5 % (42.0-52.0) L Mean Corpuscular Volume 93 FL (80-99) Mean Corpuscular Hemoglobin 30.0 PG (27.0-31.0) Mean Corpuscular Hemoglobin Concent 32.2 G/DL (32.0-36.0) Red Cell Distribution Width 17.4 % (11.6-14.8) H Platelet Count 172 K/UL (150-450) Mean Platelet Volume 7.0 FL (6.5-10.1) Neutrophils (%) (Auto) 63.1 % (45.0-75.0) Lymphocytes (%) (Auto) 29.1 % (20.0-45.0) Monocytes (%) (Auto) 5.8 % (1.0-10.0) Eosinophils (%) (Auto) 0.8 % (0.0-3.0) Basophils (%) (Auto) 1.2 % (0.0-2.0) Urine Color Pending Urine Appearance Pending Urine pH Pending Urine Specific [place] Pending Urine Protein Pending Urine Glucose (UA) Pending Urine Ketones Pending Urine Occult Blood Pending Urine Nitrite Pending Urine Bilirubin Pending Urine Urobilinogen Pending Urine Leukocyte Esterase Pending Sodium Level 141 MMOL/L (136-145) Potassium Level 3.9 MMOL/L (3.5-5.1) Chloride Level 103 MMOL/L (98-107) Carbon Dioxide Level 35 MMOL/L (21-32) H Anion Gap 3 mmol/L (5-15) L Blood Urea Nitrogen 22 mg/dL (7-18) H Creatinine 0.7 MG/DL (0.55-1.30) Estimate Glomerular Filtration Rate > 60 mL/min (>60) Glucose Level 72 MG/DL (74-106) L Calcium Level 9.0 MG/DL (8.5-10.1) Total Bilirubin 0.5 MG/DL (0.2-1.0) Aspartate Amino Transferase (AST) 14 U/L (15-37) L Alanine Aminotransferase (ALT) 42 U/L (12-78) Alkaline Phosphatase 65 U/L (46-116) Troponin I 0.013 ng/mL (0.000-0.056) Pro-B-Type Natriuretic Peptide 54 pg/mL (0-125) Total Protein 6.2 G/DL (6.4-8.2) L Albumin 3.1 G/DL (3.4-5.0) L Globulin 3.1 g/dL Albumin/Globulin Ratio 1.0 (1.0-2.7) Last Vital Signs Date Time Temp Pulse Resp B/P (MAP) Pulse Ox O2 Delivery O2 Flow Rate FiO2 09/22/17 18:39 98.2 86 18 118/77 98 Nasal Cannula 1.0 98.2 Disposition: XFER [facility] Condition: Serious Retino,Clairose Jarrod. Sep 22, 2017 18:53
[2017-09-22] MEDS: Albuterol ud Inhalation HHN SCH ×3 (18:58→19:15)
[2017-09-22 19:24] LABS: ANION GAP 3 mmol/L (5-15); BLOOD UREA NITROGEN 22 mg/dL (7-18); CARBON DIOXIDE 35 MMOL/L (21-32); CHLORIDE 103 MMOL/L (98-107); CREATININE 0.7 MG/DL (0.55-1.30); POTASSIUM 3.9 MMOL/L (3.5-5.1); SODIUM 141 MMOL/L (136-145)
[2017-09-22 19:29] VITALS: BP 116/70
[2017-09-22 19:38] LABS: BASOPHILS % (AUTO) 1.2 % (0.0-2.0); EOSINOPHILS % (AUTO) 0.8 % (0.0-3.0); HEMATOCRIT 40.5 % (42.0-52.0); HEMOGLOBIN 13.1 G/DL (14.2-18.0); LYMPHOCYTES % (AUTO) 29.1 % (20.0-45.0); MEAN CORPUSCULAR VOLUME 93 FL (80-99); MONOCYTES % (AUTO) 5.8 % (1.0-10.0); NEUTROPHILS % (AUTO) 63.1 % (45.0-75.0); PLATELET COUNT 172 K/UL (150-450); RED BLOOD COUNT 4.36 M/UL (4.70-6.10); RED CELL DISTRIBUTION WIDTH 17.4 % (11.6-14.8); WHITE BLOOD COUNT 10.6 K/UL (4.8-10.8)
[2017-09-22 19:40] LABS: ALANINE AMINOTRANSFERASE 42 U/L (12-78); ALBUMIN 3.1 G/DL (3.4-5.0); ALKALINE PHOSPHATASE 65 U/L (46-116); ASPARTATE AMINO TRANSFERASE 14 U/L (15-37); BILIRUBIN,TOTAL 0.5 MG/DL (0.2-1.0)
[2017-09-22] MEDS ORDERED: ATROVENT HFA12.9 GM (20:01)
[2017-09-22] MEDS ORDERED: Azithromycin 500 MG in NS 275 ML IV ONE (20:30)
[2017-09-22] MEDS ORDERED: Azithromycin 500mg Inj IV ONE (20:36)
[2017-09-22 21:07] VITALS: BP 116/95
[2017-09-22 21:30] VITALS: BP 116/95
--- NOTE | 2017-09-23 11:30 | Diagnostic Imaging Report ---
Indication: Dyspnea Comparison: 08/30/2017 A single view chest radiograph was obtained. Findings: The lungs are hyperexpanded. Some interstitial prominence is present which I suspect is chronic. The heart is normal in size. Bones are osteopenic. IMPRESSION: COPD
--- NOTE | 2017-09-25 15:26 | Cardiology Report ---
APPROVED REPORT EKG Measurement Heart [id number] CO 134P86 [id number] Normal sinus rhythm Right atrial enlargement Borderline ECG
== END 2017-09-22 21:30 | disposition short-term general hospital (02) ==
LOC: EDBD 18:26 → EMR 19:00
DX: J44.1 Chronic obstructive pulmonary disease with (acute) exacerbation (principal); I10 Essential (primary) hypertension; M25.562 Pain in left knee; M25.561 Pain in right knee; Z88.8 Allergy status to other drugs, medicaments and biological substances
CPT/HCPCS: 36415; 71045; 80053; 83880; 84484; 85025; 93005; 94640; 94664; 96374; 96375; 99285; J0456; J2930; J7050

== ENCOUNTER 2017-10-02 16:03 | Emergency (ER) | payer OTHER ==
[~2017-10-02] VITALS: Ht 185.4 cm; Wt 61.2 kg
[~2017-10-02 16:03] MED LIST changes: +ATROVENT HFA12.9 GM; +MONTELUKAST SOD10 MG ORAL; +VITAMIN D400 INTLU ORAL
[2017-10-02] MEDS ORDERED: Sodium Chloride 500ML 500 ML IV ONE (16:09)
[2017-10-02 16:10] VITALS: BP 125/94
[2017-10-02] MEDS ORDERED: Solu-MEDROL 125mg Inj IVP ONE (16:15)
[2017-10-02] MEDS: Albuterol ud Inhalation HHN SCH ×2 (16:18→16:19)
[2017-10-02] MEDS: Ipratropium 0.02% Inh Soln 2.5ml UD HHN SCH ×2 (16:18→16:19)
--- NOTE | 2017-10-02 16:20 | Emergency Room Report ---
History of Present Illness General Chief Complaint: Dyspnea/Respdistress Source: Patient Present Illness HPI 61-year-old male presents ED for evaluation patient presents from [place] with shortness of breath. History of COPD. Patient states he ran out of his oxygen. Per EMS patient was wheezing. O2 sats low. Started on breathing treatments. Patient states he feels a little better but still having a hard time breathing. Denies any shortness of breath. Denies fevers or chills. Patient states that he was recently discharged from another hospital for treatment of COPD. States that his symptoms have since returned. No other aggravating or relieving factors. Denies any other associated symptoms Allergies: Coded Allergies: GABAPENTIN (Unverified Allergy, Intermediate, 09/22/17) Patient History Past Medical History: DM, HTN, asthma, COPD Past Surgical History: none Pertinent Family History: none Social History: Denies: smoking, alcohol use, drug use Immunizations: UTD Reviewed Nursing Documentation: PMH: Agreed, PSxH: Agreed Nursing Documentation-PMH Past Medical History: No History, Except For Hx Hypertension: Yes Hx Asthma: Yes Hx COPD: Yes Hx Diabetes: Yes Hx Gastrointestinal Problems: No - Left testicular, hernia. Review of Systems All Other Systems: negative except mentioned in HPI Physical Exam Vital Signs Date Time Temp Pulse Resp B/P (MAP) Pulse Ox O2 Delivery O2 Flow Rate FiO2 10/02/17 16:07 97.4 110 24 125/94 94 Room Air 97.3 Sp02 EP Interpretation: reviewed, normal General Appearance: alert, GCS 15, non-toxic, mild distress Head: normocephalic, atraumatic Eyes: bilateral eye normal inspection, bilateral eye PERRL ENT: hearing grossly normal, normal pharynx, no angioedema, normal voice Neck: full range of motion, supple/symm/no masses Respiratory: chest non-tender, decreased breath sounds, accessory muscle use, speaking full sentences, wheezing Cardiovascular #1: regular rate, rhythm, no edema Cardiovascular #2: 2+ carotid (R), 2+ carotid (L), 2+ radial (R), 2+ radial (L) , 2+ dorsalis pedis (R), 2+ dorsalis pedis (L) Gastrointestinal: normal bowel sounds, non tender, soft, non-distended, no guarding, no rebound Rectal: deferred Genitourinary: normal inspection, no CVA tenderness Musculoskeletal: back normal, gait/station normal, normal range of motion, non- tender Neurologic: alert, oriented x3, responsive, motor strength/tone normal, sensory intact, speech normal Psychiatric: judgement/insight normal, memory normal, mood/affect normal, no suicidal/homicidal ideation Reflexes: 3+ bicep (R), 3+ bicep (L), 3+ tricep (R), 3+ tricep (L), 3+ knee (R) , 3+ knee (L) Skin: normal color, no rash, warm/dry, well hydrated Lymphatic: no adenopathy Medical Decision Making Diagnostic Impression: Primary Impression: COPD exacerbation ER Course Hospital Course 61-year-old M presenting to ED with SOB. h/o COPD Differential diagnoses include: Pneumonia, CHF exacerbation, pneumothorax, fluid overload Clinical course Patient placed on stretcher. 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 After initial history and physical, I ordered nebulizer treatments, prednisone. I ordered labs, IV fluids, EKG, chest x-ray, blood cultures, UA. Labs - minimal leukocytosis noted, hemoglobin/hematocrit stable, electrolytes okay, lactate > 2, troponins negative CXR - hyperinflated lungs. no infiltrates EKG - NSR, no acute ischemic changes interpreted by me ABG within normal limits Antibiotics given. Because of insurance patient will be transferred I feel this is a highly complex case requiring extensive working including EKG/ Rhythm strip, Xray/CT/US, Blood/urine lab work, repeat exams while in ED, and administration of strong opiates/narcotics for pain control, admission to hospital or close patient follow up. Diagnosis - COPD exacerbation Patient transferred in serious condition Labs Test 10/02/17 16:09 10/02/17 16:35 Arterial Blood pH 7.370 (7.350-7.450) Arterial Blood Partial Pressure CO2 46.3 mmHg (35.0-45.0) Arterial Blood Partial Pressure O2 56.3 mmHg (75.0-100.0) Arterial Blood HCO3 26.5 mmol/L (22.0-26.0) Arterial Blood Oxygen Saturation 87.5 % (92.0-98.0) Arterial Blood Base Excess 0.9 Mukesh Test Positive White Blood Count 13.1 K/UL (4.8-10.8) Red Blood Count 5.27 M/UL (4.70-6.10) Hemoglobin 15.1 G/DL (14.2-18.0) Hematocrit 48.3 % (42.0-52.0) Mean Corpuscular Volume 92 FL (80-99) Mean Corpuscular Hemoglobin 28.7 PG (27.0-31.0) Mean Corpuscular Hemoglobin Concent 31.3 G/DL (32.0-36.0) Red Cell Distribution Width 16.5 % (11.6-14.8) Platelet Count 288 K/UL (150-450) Mean Platelet Volume 6.7 FL (6.5-10.1) Neutrophils (%) (Auto) 75.6 % (45.0-75.0) Lymphocytes (%) (Auto) 18.6 % (20.0-45.0) Monocytes (%) (Auto) 4.9 % (1.0-10.0) Eosinophils (%) (Auto) 0.3 % (0.0-3.0) Basophils (%) (Auto) 0.7 % (0.0-2.0) Sodium Level 137 MMOL/L (136-145) Potassium Level 4.5 MMOL/L (3.5-5.1) Chloride Level 98 MMOL/L (98-107) Carbon Dioxide Level 32 MMOL/L (21-32) Anion Gap 7 mmol/L (5-15) Blood Urea Nitrogen 18 mg/dL (7-18) Creatinine 0.6 MG/DL (0.55-1.30) Estimat Glomerular Filtration Rate > 60 mL/min (>60) Glucose Level 108 MG/DL (74-106) Lactic Acid Level 2.80 mmol/L (0.66-2.22) Calcium Level 10.0 MG/DL (8.5-10.1) Total Bilirubin 0.2 MG/DL (0.2-1.0) Aspartate Amino Transf (AST/SGOT) 40 U/L (15-37) Alanine Aminotransferase (ALT/SGPT) 78 U/L (12-78) Alkaline Phosphatase 100 U/L (46-116) Total Creatine Kinase 90 U/L (26-308) Troponin I 0.000 ng/mL (0.000-0.056) Pro-B-Type Natriuretic Peptide 121 pg/mL (0-125) Total Protein 7.8 G/DL (6.4-8.2) Albumin 3.4 G/DL (3.4-5.0) Globulin 4.4 g/dL Albumin/Globulin Ratio 0.8 (1.0-2.7) EKG Diagnostic Results Rate: tachycardiac Rhythm: NSR ST Segments: no acute changes ASA given to the pt in ED: No Rhythm Strip Diag. Results EP Interpretation: yes Rhythm: NSR, no PVC's, no ectopy Chest X-Ray Diagnostic Results Chest X-Ray Diagnostic Results : Chest X-Ray Ordered: Yes # of Views/Limited/Complete: 1 View Indication: Shortness of Breath EP Interpretation: Yes Interpretation: no consolidation, no effusion, no pneumothorax, no acute cardiopulmonary disease Impression: No acute disease Electronically Signed by: Electronically signed by Ike Teran MD Last Vital Signs Date Time Temp Pulse Resp B/P (MAP) Pulse Ox O2 Delivery O2 Flow Rate FiO2 10/02/17 16:07 97.4 110 24 125/94 94 Room Air 97.3 Status: improved Disposition: ADMITTED INPATIENT Condition: Serious IKE TERAN M.D. Oct 02, 2017 16:20
[2017-10-02 16:55] LABS: BASOPHILS % (AUTO) 0.7 % (0.0-2.0); EOSINOPHILS % (AUTO) 0.3 % (0.0-3.0); HEMATOCRIT 48.3 % (42.0-52.0); HEMOGLOBIN 15.1 G/DL (14.2-18.0); LYMPHOCYTES % (AUTO) 18.6 % (20.0-45.0); MEAN CORPUSCULAR VOLUME 92 FL (80-99); MONOCYTES % (AUTO) 4.9 % (1.0-10.0); NEUTROPHILS % (AUTO) 75.6 % (45.0-75.0); PLATELET COUNT 288 K/UL (150-450); RED BLOOD COUNT 5.27 M/UL (4.70-6.10); RED CELL DISTRIBUTION WIDTH 16.5 % (11.6-14.8); WHITE BLOOD COUNT 13.1 K/UL (4.8-10.8)
[2017-10-02 17:14] LABS: ANION GAP 7 mmol/L (5-15); BLOOD UREA NITROGEN 18 mg/dL (7-18); CARBON DIOXIDE 32 MMOL/L (21-32); CHLORIDE 98 MMOL/L (98-107); CREATININE 0.6 MG/DL (0.55-1.30); POTASSIUM 4.5 MMOL/L (3.5-5.1); SODIUM 137 MMOL/L (136-145)
[2017-10-02 17:24] LABS: ALANINE AMINOTRANSFERASE 78 U/L (12-78); ALBUMIN 3.4 G/DL (3.4-5.0); ALBUMIN/GLOBULIN RATIO 0.8 (1.0-2.7); ALKALINE PHOSPHATASE 100 U/L (46-116); ASPARTATE AMINO TRANSFERASE 40 U/L (15-37); BILIRUBIN,TOTAL 0.2 MG/DL (0.2-1.0); CREATINE KINASE 90 U/L (26-308)
[2017-10-02 18:24] VITALS: BP 125/94
--- NOTE | 2017-10-03 08:31 | Diagnostic Imaging Report ---
Indication: Shortness of breath Technique: One view of the chest Comparison: 09/22/2017 Findings: Lungs are hyperinflated. No acute infiltrates, effusions, or congestion. The heart size is normal. There is evidence of central bronchiectasis and bronchial wall thickening again demonstrated. Findings are unchanged Impression: COPD changes No acute process
--- NOTE | 2017-10-03 15:53 | Cardiology Report ---
APPROVED REPORT EKG Measurement Heart [id number] CO 132P89 [id number] Sinus tachycardia Biatrial enlargement Rightward axis Pulmonary disease pattern Abnormal ECG
== END 2017-10-02 19:18 | disposition short-term general hospital (02) ==
LOC: EDBD 16:03 → EDBEDREQ 16:37 → EMR 16:44
DX: J45.901 Unspecified asthma with (acute) exacerbation (principal); I10 Essential (primary) hypertension; E11.9 Type 2 diabetes mellitus without complications; Z88.8 Allergy status to other drugs, medicaments and biological substances; J44.9 Chronic obstructive pulmonary disease, unspecified
CPT/HCPCS: 36415; 36600; 71045; 80053; 82550; 82803; 83605; 83880; 84484; 85025; 87040; 93005; 94640; 94664; 96374; 96375; 99285; J1956; J2930; J7040

== ENCOUNTER 2017-10-28 09:55 | Emergency (ER) | payer OTHER ==
[~2017-10-28] VITALS: Ht 182.9 cm; Wt 72.6 kg
--- NOTE | 2017-10-28 09:54 | Emergency Room Report ---
History of Present Illness General Source: Patient, EMS Present Illness HPI Patient is a 62-year-old male brought in by EMS after increased difficulty breathing. Patient gradual onset of symptoms. He is noted to have increased cough. Patient prior history of COPD. Given breathing treatment by EMS prior to arrival. He was noted to have continued difficulty with breathing. Allergies: Coded Allergies: GABAPENTIN (Verified Allergy, Unknown, 10/28/17) Patient History Reviewed Nursing Documentation: PMH: Agreed; PSxH: Agreed Review of Systems All Other Systems: negative except mentioned in HPI Physical Exam Sp02 EP Interpretation: reviewed, normal General Appearance: normal inspection, well appearing, no apparent distress, alert Head: atraumatic ENT: normal ENT inspection, hearing grossly normal, normal voice Neck: normal inspection, full range of motion, supple, no bony tend Respiratory: no respiratory distress, no retraction, wheezing, expiration Cardiovascular #1: regular rate, rhythm, no edema Gastrointestinal: normal inspection, normal bowel sounds, non tender, soft, no guarding, no hernia Genitourinary: no CVA tenderness Musculoskeletal: normal inspection, back normal, normal range of motion Neurologic: normal inspection, alert, oriented x3, responsive, 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 Differential included but was not limited to anemia, pneumonia, pneumothorax, myocardial infarction, pericardial effusion, congestive heart failure, acidosis. Patient was noted to have elevated white blood count. Chest x-ray one view read by radiology showed no evidence of acute infiltrate. Patient was given IV steroids as well as breathing treatments with some improvement however he continued to have the breathing and had markedly difficulty breathing with minimal ambulation. The patient is currently stable for transfer. Dr. Pederson is a accepting physician Labs Test 10/28/17 10:12 White Blood Count 14.6 K/UL (4.8-10.8) Red Blood Count 5.53 M/UL (4.70-6.10) Hemoglobin 15.9 G/DL (14.2-18.0) Hematocrit 50.9 % (42.0-52.0) Mean Corpuscular Volume 92 FL (80-99) Mean Corpuscular Hemoglobin 28.7 PG (27.0-31.0) Mean Corpuscular Hemoglobin Concent 31.1 G/DL (32.0-36.0) Red Cell Distribution Width 16.6 % (11.6-14.8) Platelet Count 242 K/UL (150-450) Mean Platelet Volume 6.7 FL (6.5-10.1) Neutrophils (%) (Auto) 75.2 % (45.0-75.0) Lymphocytes (%) (Auto) 15.8 % (20.0-45.0) Monocytes (%) (Auto) 7.2 % (1.0-10.0) Eosinophils (%) (Auto) 1.0 % (0.0-3.0) Basophils (%) (Auto) 0.8 % (0.0-2.0) Sodium Level 143 MMOL/L (136-145) Potassium Level 4.4 MMOL/L (3.5-5.1) Chloride Level 101 MMOL/L (98-107) Carbon Dioxide Level 34 MMOL/L (21-32) Anion Gap 8 mmol/L (5-15) Blood Urea Nitrogen 24 mg/dL (7-18) Creatinine 0.7 MG/DL (0.55-1.30) Estimat Glomerular Filtration Rate > 60 mL/min (>60) Glucose Level 127 MG/DL (74-106) Lactic Acid Level 2.00 mmol/L (0.66-2.22) Calcium Level 9.6 MG/DL (8.5-10.1) Phosphorus Level 4.4 MG/DL (2.5-4.9) Magnesium Level 2.3 MG/DL (1.8-2.4) Total Bilirubin 0.4 MG/DL (0.2-1.0) Aspartate Amino Transf (AST/SGOT) 20 U/L (15-37) Alanine Aminotransferase (ALT/SGPT) 30 U/L (12-78) Alkaline Phosphatase 77 U/L (46-116) Total Creatine Kinase 72 U/L (26-308) Creatine Kinase MB 3.4 NG/ML (0.0-3.6) Creatine Kinase MB Relative Index 4.7 Troponin I 0.000 ng/mL (0.000-0.056) Total Protein 7.9 G/DL (6.4-8.2) Albumin 4.0 G/DL (3.4-5.0) Globulin 3.9 g/dL Albumin/Globulin Ratio 1.0 (1.0-2.7) EKG Diagnostic Results Rate: tachycardiac - 100 Rhythm: NSR ST Segments: no acute changes Rhythm Strip Diag. Results EP Interpretation: yes Rhythm: NSR, no PVC's, no ectopy Status: unchanged Disposition: XFER [facility] Condition: Serious Scripts Albuterol Sulfate* (ALBUTEROL SULFATE MDI*) 8.5 Gm Hfa.aer.ad 2 PUFF INH Q4H, #1 INH 0 Refills Prov: Gurvinder Joshi 10/28/17 Prednisone* (PREDNISONE*) 20 Mg Tablet 40 MG ORAL DAILY, #10 TAB Prov: Gurvinder Joshi 10/28/17 Gurvinder Joshi Oct 28, 2017 09:54
[~2017-10-28 09:55] MED LIST changes: +Albuterol/Ipratropium 3ml neb ONE
[2017-10-28] MEDS ORDERED: Solu-MEDROL 125mg Inj IVP ONE (10:00)
[2017-10-28] MEDS ORDERED: Albuterol/Ipratropium 3ml neb HHN ONE (10:00)
[2017-10-28] MEDS ORDERED: Aspirin Baby 81mg ORAL ONE (10:15)
[2017-10-28 10:34] VITALS: BP 143/85
--- NOTE | 2017-10-28 10:37 | Diagnostic Imaging Report ---
Indication: Shortness of breath Technique: XRAY Chest 1v Comparison: None Findings: Cardiomediastinal silhouette is within normal limits. The lungs are hyperinflated. Mild interstitial opacities are noted in the left base. There is no pneumothorax. Osseous structures demonstrate no acute abnormality. Impression: No focal consolidation. Pulmonary hyperinflation with mild interstitial opacities in the left base. Clinical correlation/follow-up recommended.
[2017-10-28 10:46] LABS: BASOPHILS % (AUTO) 0.8 % (0.0-2.0); HEMATOCRIT 50.9 % (42.0-52.0); HEMOGLOBIN 15.9 G/DL (14.2-18.0); LYMPHOCYTES % (AUTO) 15.8 % (20.0-45.0); MEAN CORPUSCULAR VOLUME 92 FL (80-99); MONOCYTES % (AUTO) 7.2 % (1.0-10.0); NEUTROPHILS % (AUTO) 75.2 % (45.0-75.0); PLATELET COUNT 242 K/UL (150-450); RED BLOOD COUNT 5.53 M/UL (4.70-6.10); RED CELL DISTRIBUTION WIDTH 16.6 % (11.6-14.8); WHITE BLOOD COUNT 14.6 K/UL (4.8-10.8)
[2017-10-28 11:06] LABS: ANION GAP 8 mmol/L (5-15); BLOOD UREA NITROGEN 24 mg/dL (7-18); CALCIUM 9.6 MG/DL (8.5-10.1); CARBON DIOXIDE 34 MMOL/L (21-32); CHLORIDE 101 MMOL/L (98-107); CREATININE 0.7 MG/DL (0.55-1.30); POTASSIUM 4.4 MMOL/L (3.5-5.1); SODIUM 143 MMOL/L (136-145)
[2017-10-28 11:18] LABS: ALANINE AMINOTRANSFERASE 30 U/L (12-78); ALKALINE PHOSPHATASE 77 U/L (46-116); ASPARTATE AMINO TRANSFERASE 20 U/L (15-37); BILIRUBIN,TOTAL 0.4 MG/DL (0.2-1.0); CKMB 3.4 NG/ML (0.0-3.6); CREATINE KINASE 72 U/L (26-308); PHOSPHORUS 4.4 MG/DL (2.5-4.9)
[2017-10-28] MEDS ORDERED: PREDNISONE20 MG ORAL (12:12)
[2017-10-28] MEDS ORDERED: ALBUTEROL SULF8.5 GM INH (12:12)
[2017-10-28 12:25] VITALS: BP 143/85
== END 2017-10-28 12:25 | disposition short-term general hospital (02) ==
LOC: EDBD 09:55 → EMR 10:22 → MERGE 10:22 → EMR 12:25
DX: J44.1 Chronic obstructive pulmonary disease with (acute) exacerbation (principal); Z88.8 Allergy status to other drugs, medicaments and biological substances
CPT/HCPCS: 36415; 71045; 80053; 82550; 82553; 83605; 83735; 84100; 84484; 85025; 87040; 87081; 93005; 94664; 96374; 99284; J2930; J7620